=== PATIENT | female | born 1980 | race Caucasian/White ===

== ENCOUNTER 2016-06-05 12:00 | Emergency (ER) | payer OTHER ==
[2016-06-05 12:18] VITALS: BP 143/82
[2016-06-05] MEDS ORDERED: Lidocaine 1% 50 ML MDV INJECT ONE (12:25)
--- NOTE | 2016-06-05 12:48 | EDM.PDOC ---
ED HPI Skin/Rash - General Chief Complaint: Laceration Stated Complaint: LEFT HAND LACERATION Time Seen by Provider: 06/05/16 12:11 Source: Reports: Patient, RN notes reviewed - History of Present Illness INITIAL COMMENTS - FREE TEXT/NARRATIVE: laceration injury to L thumb. using a knife to open a box with accidental lac to base of L thumb. no other injury. last DT about 6 or 7 yrs ago, knife was clean. - Related Data Allergies Allergy/AdvReac Type Severity Reaction Status Date / Time No Known Allergies Allergy Verified 06/05/16 12:05 Home Meds: Ambulatory Orders Medication Instructions Recorded Confirmed Cyanocobalamin (Vitamin B-12) 250 mcg PO DAILY 06/05/16 06/05/16 [B-12 Dots] Fexofenadine/Pseudoephedrine 1 each PO DAILY 06/05/16 06/05/16 [Haven-D 24 Hour Tablet] Multivits,Ca,Minerals/Iron/FA 1 each PO DAILY 06/05/16 06/05/16 [Women's Daily Formula Caplet] Past Medical History HEENT History: Reports: Impaired vision Social & Family History - Family History HEENT: Reports: Impaired vision Endocrine/Metabolic: Reports: Diabetes, type II, Hyperthyroidism, Hypothyroidism Oncologic: Reports: Breast - Tobacco Use Smoking Status *Q: Current Every Day Smoker Years of Tobacco use: 15 Packs/Tins Daily: 1 - Caffeine Use Caffeine Use: Reports: Coffee, Energy drinks - Recreational Drug Use Recreational Drug Use: No ED ROS GENERAL - Review of Systems Review Of Systems: See Below Constitutional: Reports: no symptoms HEENT: Reports: No symptoms Respiratory: Reports: No Symptoms Cardiovascular: Reports: No symptoms GI/Abdominal: Denies: Nausea Musculoskeletal: Reports: other (Lac injurybase of L thumb) Neurological: Denies: Numbness, Tingling, Weakness ED EXAM, SKIN/RASH Exam: See Below General Appearance: alert, no apparent distress Head: atraumatic Respiratory/Chest: no respiratory distress Extremities: other (1 cm flap lac volar base of L thumb, moderately deep, no foreign mat seen) Neurological: no motor/sensory deficits Skin: Warm, Dry, Normal color ED SKIN PROCEDURES - Laceration/Wound Repair Left Finger Lac/wound length in cm: 1 Appearance: other (flap configuration) Local anesthesia - Lidocaine (Xylocaine): 1% plain Skin prep: saline Suture size: 3-0 # of sutures: 3 Suture type: nylon Course - Vital Signs Last Recorded V/S: Last Vital Signs Temp 97.8 F 06/05/16 12:08 Pulse 91 06/05/16 12:08 Resp 18 06/05/16 12:08 BP 143/82 H 06/05/16 12:08 Pulse Ox 100 06/05/16 12:08 - Orders/Labs/Meds Meds: Medications Discontinued Medications Generic Name Dose Route Start Last Admin Trade Name Suzette PRN Reason Stop Dose Admin Lidocaine HCl 50 ml 06/05/16 12:25 Xylocaine 1% INJECT 06/05/16 12:26 ONETIME ONE Departure - Departure Time of Disposition: 12:47 Disposition: Home, Self-Care 01 Condition: fair Clinical Impression: Laceration of thumb Referrals: PCP,None [Primary Care Provider] - Forms: ED Department Discharge Additional Instructions: Laceration care instr., stitches out in about 10 days, there is no charge if you choose to have these taken out at our [facility] walk in clinic. Alternate tylenol and ibuprofen as needed for discomfort.
== END 2016-06-05 13:10 | disposition home or self-care (01) ==
LOC: JD.ED 12:00
DX: S61.012A Laceration without foreign body of left thumb without damage to nail, initial encounter (principal); W26.0XXA Contact with knife, initial encounter; F17.210 Nicotine dependence, cigarettes, uncomplicated; Z79.899 Other long term (current) drug therapy
CPT/HCPCS: 12001; 99282; 99283-25

== ENCOUNTER 2017-02-06 16:27 | Emergency (ER) | payer SELFPAY ==
[2017-02-06 16:37] VITALS: BP 153/94
--- NOTE | 2017-02-06 17:53 | EDM.PDOC ---
ED HPI GENERAL MEDICAL PROBLEM - General Chief Complaint: Lower Extremity Injury/Pain Stated Complaint: RIGHT FOOT INJURY Time Seen by Provider: 02/06/17 16:38 Source of Information: Reports: Patient History Limitations: Reports: No Limitations - History of Present Illness INITIAL COMMENTS - FREE TEXT/NARRATIVE: The patient got out of the shower and her feet were wet and she slipped on the lenolium and jammed her right foot into a door jam. She can walk but there is pain. Onset: Sudden Duration: Minutes: Location: Reports: Lower Extremity, Right (5th and 4th toes) Quality: Reports: Sharp Severity: Severe Improves with: Reports: Immobilization Worsens with: Reports: Movement Context: Reports: Trauma (Jammed it into a door jam) Associated Symptoms: Reports: No Other Symptoms Right Feet Pain Score (Numeric/FACES): 8 - Related Data Allergies Allergy/AdvReac Type Severity Reaction Status Date / Time No Known Allergies Allergy Verified 02/06/17 16:34 Home Meds: Home Meds Cyanocobalamin (Vitamin B-12) [B-12 Dots] 250 mcg PO DAILY 06/05/16 [History] Fexofenadine/Pseudoephedrine [Haven-D 24 Hour Tablet] 1 each PO DAILY [History] Multivits,Ca,Minerals/Iron/FA [Women's Daily Formula Caplet] 1 each PO DAILY [History] Hydrocodone/Acetaminophen [Hydrocodon-Acetaminophen 5-325] 1 - 2 each PO Q6HR PRN #20 tablet 02/06/17 [Rx] Past Medical History HEENT History: Reports: Impaired Vision Social & Family History - Family History HEENT: Reports: Impaired Vision Endocrine/Metabolic: Reports: Diabetes, type II, Hyperthyroidism, Hypothyroidism Oncologic: Reports: Breast - Tobacco Use Smoking Status *Q: Current Every Day Smoker Years of Tobacco use: 15 Packs/Tins Daily: 1 - Caffeine Use Caffeine Use: Reports: Coffee, Energy Drinks - Recreational Drug Use Recreational Drug Use: No Review of Systems - Review of Systems Review Of Systems: See Below Constitutional: Reports: No Symptoms Eyes: Reports: No Symptoms Ears: Reports: No Symptoms Nose: Reports: No Symptoms Mouth/Throat: Reports: No Symptoms Respiratory: Reports: No Symptoms Cardiovascular: Reports: No Symptoms GI/Abdominal: Reports: No Symptoms Genitourinary: Reports: No Symptoms Musculoskeletal: Reports: Other (5th and 4th toe injuries) ED EXAM, GENERAL - Physical Exam Exam: See Below Exam Limited By: No Limitations General Appearance: Alert, No Apparent Distress Ears: Normal External Exam Nose: Normal Inspection Head: Atraumatic, Normocephalic Neck: Normal Inspection Respiratory/Chest: No Respiratory Distress Extremities: Other (Pain upon palpation and edema to the 5th and 4th right toes. With good sensation and capillary refill.) Course - Vital Signs Last Recorded V/S: Last Vital Signs Temp 98.2 F 02/06/17 16:34 Pulse 91 02/06/17 16:34 Resp 17 02/06/17 16:34 BP 153/94 H 02/06/17 16:34 Pulse Ox 95 02/06/17 16:34 - Orders/Labs/Meds Orders: Active Orders 24 hr Category Date Time Status Foot Comp Min 3V Rt [CR] Stat Exams 02/06/17 16:54 Taken Durable Medical Equipment for Discharge [DME for Oth 02/06/17 17:46 Ordered Discharge] [COMM] Stat - Re-Assessments/Exams Free Text/Narrative Re-Assessment/Exam: 02/06/17 17:50 The x-ray shows a fracture of the 4th digit at the proximal phalynx. Departure - Departure Time of Disposition: 17:50 Disposition: Home, Self-Care 01 Condition: Good Clinical Impression: Toe fracture, right Qualifiers: Encounter type: initial encounter Toe: unspecified toe Fracture type: closed Fracture alignment: nondisplaced Qualified Code(s): S92.911A - Unspecified fracture of right toe(s), initial encounter for closed fracture - Discharge Information Prescriptions: Hydrocodone/Acetaminophen [Hydrocodon-Acetaminophen 5-325] 1 - 2 each PO Q6HR PRN #20 tablet PRN Reason: Pain Referrals: PCP,None [Primary Care Provider] - Jose Grossman MD [Physician] - 1 Week Additional Instructions: Ice your toe for 15 minutes every other hour while awake for 2 days. Try to elevate your toe above your heart as much as you can for 2 days. Take motrin or aleve for pain. You may also try some hydrocodone for pain. Wear the walking boot for comfort. Follow up with Dr Grossman within 1 week. Please return if you are worse. - My Orders Last 24 Hours: My Active Orders 02/06/17 16:54 Foot Comp Min 3V Rt [CR] Stat 02/06/17 17:46 Durable Medical Equipment for Discharge [DME for Discharge] [COMM] Stat - Assessment/Plan Last 24 Hours: My Active Orders 02/06/17 16:54 Foot Comp Min 3V Rt [CR] Stat 02/06/17 17:46 Durable Medical Equipment for Discharge [DME for Discharge] [COMM] Stat
[2017-02-06] MEDS ORDERED: Acetaminophen/HYDROcodone 325-5 MG Tab PO ONE (18:21)
--- NOTE | 2017-02-07 10:53 | CR ---
Right foot: 4 views of the right foot were obtained. Comparison: No prior study. Fracture is identified within the mid shaft of the proximal phalanx of the fourth digit. No additional fracture is identified. This proximal phalanx fracture shows minimal displacement. Plantar spur is seen. No additional bony abnormality is identified. Impression: 1. Minimally displaced fracture involving the proximal phalanx of the right fourth toe. 2. Incidental plantar spur. Diagnostic code #3
== END 2017-02-06 18:43 | disposition home or self-care (01) ==
LOC: JD.ED 16:27
DX: S92.511A Displaced fracture of proximal phalanx of right lesser toe(s), initial encounter for closed fracture (principal); F17.210 Nicotine dependence, cigarettes, uncomplicated; Z79.899 Other long term (current) drug therapy; W23.1XXA Caught, crushed, jammed, or pinched between stationary objects, initial encounter
CPT/HCPCS: 73630; 99283; A9270

== ENCOUNTER 2018-07-18 07:50 | Emergency (ER) | payer SELFPAY ==
[2018-07-18] MEDS ORDERED: Diphtheria,Pertussis(Acell),Tetanus Vaccine 0.5 ML Syringe IM ONE (08:35)
--- NOTE | 2018-07-18 08:41 | EDM.PDOC ---
ED HPI GENERAL MEDICAL PROBLEM - General Chief Complaint: Laceration Stated Complaint: L INDEX FINGER LAC Time Seen by Provider: 07/18/18 08:18 Source of Information: Reports: Patient, RN Notes Reviewed History Limitations: Reports: No Limitations - History of Present Illness INITIAL COMMENTS - FREE TEXT/NARRATIVE: The patient states that her left index finger was lacerated when it got caught between 2 pieces of metal at work this morning. She presents with a laceration to the dorsal aspect of her left second finger. She is otherwise uninjured. She states that her last tetanus vaccination was 7-10 years ago. The patient does not have a PCP. Left Finger-Index Pain Score (Numeric/FACES): 6 - Related Data Allergies Allergy/AdvReac Type Severity Reaction Status Date / Time No Known Allergies Allergy Verified 07/18/18 08:17 Home Meds: Home Meds Cyanocobalamin (Vitamin B-12) [B-12 Dots] 250 mcg PO DAILY 06/05/16 [History] Multivits,Ca,Minerals/Iron/FA [Women's Daily Formula Caplet] 1 each PO DAILY [History] Fexofenadine [Haven] 0 mg PO DAILY 07/18/18 [History] Loratadine/Pseudoephedrine [Claritin-D 24 Hour Tablet] 1 tab PO DAILY 07/18/18 [ History] Past Medical History HEENT History: Reports: Allergic Rhinitis, Impaired Vision Other HEENT History: wears eyeglasses Musculoskeletal History: Reports: Fracture (toe) - Infectious Disease History Infectious Disease History: Reports: Chicken Pox - Past Surgical History HEENT Surgical History: Reports: Oral Surgery (wisdom teeth extraction) Musculoskeletal Surgical History: Reports: Other (See Below) (Right foot cyst excision) Social & Family History - Family History HEENT: Reports: Impaired Vision Musculoskeletal: Reports: RA Endocrine/Metabolic: Reports: Diabetes, type II, Hyperthyroidism, Hypothyroidism Oncologic: Reports: Breast - Tobacco Use Smoking Status *Q: Current Every Day Smoker Years of Tobacco use: 19 Packs/Tins Daily: 1 - Caffeine Use Caffeine Use: Reports: Coffee, Energy Drinks, Soda - Alcohol Use Alcohol Use History: No - Recreational Drug Use Recreational Drug Use: No - Living Situation & Occupation Living situation: Reports: Single, Alone Occupation: Employed ([employer]) ED ROS GENERAL - Review of Systems Review Of Systems: ROS reveals no pertinent complaints other than HPI. ED EXAM, SKIN/RASH Exam: See Below Exam Limited By: No Limitations General Appearance: Alert, WD/WN, No Apparent Distress Extremities: Other (1.0 cm partial-thickness linear laceration running along the axis of the finger, over the dorsal aspect of the DIP joint. The nailbed is not involved. No tendinous injury. Neurovascular status of the finger is intact. ) Course - Vital Signs Last Recorded V/S: Last Vital Signs Temp 37.1 C 07/18/18 08:10 Pulse 85 07/18/18 08:10 Resp 16 07/18/18 08:10 BP 155/90 H 07/18/18 08:10 Pulse Ox 98 07/18/18 08:10 - Orders/Labs/Meds Orders: Active Orders 24 hr Category Date Time Status Vaccines to be Administered [RC] PER UNIT ROUTINE Care 07/18/18 08:35 Ordered Diphth,Pertuss(Acell),Tet Vac [Adacel] Med 07/18/18 08:35 Once 0.5 ml IM .ONCE ONE - Re-Assessments/Exams Free Text/Narrative Re-Assessment/Exam: 07/18/18 08:36 The laceration on the dorsal aspect of the patient's left second finger is partial-thickness, and does not require suturing. The nurse will apply a thin smear of bacitracin ointment and a clean bandage. Since it has been 7-10 years since the patient's last tetanus vaccination, the patient will receive a tetanus vaccine here in the ED prior to discharge. Departure - Departure Time of Disposition: 08:37 Disposition: Home, Self-Care 01 Condition: Good Clinical Impression: Laceration of left index finger - Discharge Information *PRESCRIPTION DRUG MONITORING PROGRAM REVIEWED*: Not Applicable *COPY OF PRESCRIPTION DRUG MONITORING REPORT IN PATIENT SHAYNA: Not Applicable Referrals: PCP,None [Primary Care Provider] - Additional Instructions: You were seen in the emergency room after cutting your left index finger at work. The laceration is not so deep that sutures were indicated. Keep the wound clean with ordinary soap and water when you bathe daily. Apply thin smear of bacitracin (we do not recommend that you use Neosporin), then cover with a clean bandage. The wound may get wet when you are bathing, however, you should not soak it, such as in the bath or with swimming. Keep it dry at work. You received a tetanus vaccination in the ER. If any other problems, please do not hesitate to return to the ER. - My Orders Last 24 Hours: My Active Orders 07/18/18 08:35 Vaccines to be Administered [RC] PER UNIT ROUTINE Diphth,Pertuss(Acell),Tet Vac [Adacel] 0.5 ml IM .ONCE ONE - Assessment/Plan Last 24 Hours: My Active Orders 07/18/18 08:35 Vaccines to be Administered [RC] PER UNIT ROUTINE Diphth,Pertuss(Acell),Tet Vac [Adacel] 0.5 ml IM .ONCE ONE
[2018-07-18 09:08] VITALS: BP 133/89
== END 2018-07-18 08:55 | disposition home or self-care (01) ==
LOC: JD.ED 07:50
DX: S61.211A Laceration without foreign body of left index finger without damage to nail, initial encounter (principal); F17.210 Nicotine dependence, cigarettes, uncomplicated; Z98.890 Other specified postprocedural states; W23.0XXA Caught, crushed, jammed, or pinched between moving objects, initial encounter; Y99.0 Civilian activity done for income or pay
CPT/HCPCS: 90471; 90700; 99282; 99283